=== PATIENT | female | born 1940 | race African-American/Black ===

== ENCOUNTER → 2016-06-27 | Outpatient (CLI) | payer OTHER | LOC: RAD 02:00 | DX: Z12.31 Encounter for screening mammogram for malignant neoplasm of breast (principal) ==

== ENCOUNTER → 2017-07-17 | Outpatient (CLI) | payer OTHER | LOC: RAD 10:09 | DX: Z12.31 Encounter for screening mammogram for malignant neoplasm of breast (principal) ==

== ENCOUNTER → 2017-08-10 | Outpatient (CLI) | payer OTHER ==
[2017-08-10 10:21] LABS: CREATININE 0.8 mg/dL (0.6-1.0)
== END ==
LOC: CAT 06:48
PROVIDERS: Thoracic Surgery (Cardiothoracic Vascular Surgery)
DX: Z01.812 Encounter for preprocedural laboratory examination (principal); I71.2 Thoracic aortic aneurysm, without rupture; N28.1 Cyst of kidney, acquired

== ENCOUNTER → 2018-05-21 | Outpatient (CLI) | payer OTHER | LOC: RAD 10:13 → ULTRA 10:13 | DX: N63.22 Unspecified lump in the left breast, upper inner quadrant (principal); R92.2 Inconclusive mammogram; I10 Essential (primary) hypertension; I48.91 Unspecified atrial fibrillation; M81.0 Age-related osteoporosis without current pathological fracture ==

== ENCOUNTER → 2018-07-20 | Outpatient (CLI) | payer OTHER ==
[2018-07-20 13:23] LABS: CREATININE 0.7 mg/dL (0.6-1.0)
== END ==
LOC: LABMALL 12:50
PROVIDERS: Internal Medicine Cardiovascular Disease
DX: I71.2 Thoracic aortic aneurysm, without rupture (principal); N28.1 Cyst of kidney, acquired; Z88.8 Allergy status to other drugs, medicaments and biological substances

== ENCOUNTER → 2018-12-17 | Outpatient (CLI) | payer OTHER ==
[2018-12-17 10:16] LABS: CALCIUM 9.4 mg/dL (8.5-10.1); CREATININE 0.7 mg/dL (0.6-1.0); POTASSIUM 4.2 mmol/L (3.5-5.1)
--- NOTE | 2018-12-17 12:34 | 2DMMODE ---
[facility] [place] [address] 2 D/M-MODE ECHOCARDIOGRAM Name: ZEE ORTIZ Room #: REG [facility]#: [id number] Admission: 12/17/18 Attend Phys: Isidro Billings MD Discharge: Date of : 44 Report #: [id number] THIS REPORT FOR: //name// APPROVED REPORT Study performed: 12/17/2018 11:15:10 EXAM: Comprehensive 2D, Doppler, and color-flow Echocardiogram Patient Location: Out-Patient Room #: Echo lab 2 Status: routine BSA: 1.61 HR: 61 bpm BP: 144/82 mmHg Rhythm: NSR Other Information Study Quality: Good Indications Atrial Fibrillation Hypertension/HDD Dilated Aorta 2D Dimensions RVDd: 27.34 mm IVSd: 9.41 (7-11mm) LVOT Diam: 18.49 (18-24mm) LVDd: 42.55 mm PWd: 8.94 (7-11mm) Ascending Ao: 45.61 (22-36mm) LVDs: 28.42 (25-40mm) Aortic Root: 32.57 mm IVC: 11.00 mm Volumes Left Atrial Volume (Systole) Single Plane 4CH: 30.50 mL Single Plane 2CH: 29.39 mL LA ESV Index: 22.00 mL/m2 Aortic Valve AoV Peak Cristian.: 1.55 m/s AO Peak Gr.: 9.60 mmHg LVOT Max P.72 mmHg LVOT Max V: 1.20 m/s ERIC Vmax: 2.07 cm2 AI Vmax: 5.07 m/s AI [place]: 2.72 m/s2 AI PHT: 540.84 ms [facility] [place] [address] 2 D/M-MODE ECHOCARDIOGRAM Name: ZEE ORTIZ Room #: [facility]#: [id number] Admission: 12/17/18 Attend Phys: Isidro Billings MD Discharge: Date of : 44 Report #: [id number] Mitral Valve E/A Ratio: 0.6 MV Decel. Time: 278.65 ms MV E Max Cristian.: 0.44 m/s MV A Cristian.: 0.71 m/s MV PHT: 80.81 ms IVRT: 152.25 ms Pulmonary Valve PV Peak Cristian.: 0.86 m/s PV Peak Gr.: 2.94 mmHg Pulmonary Vein P Vein S: 0.57 m/s P Vein A: 0.36 m/s P Vein D: 0.36 m/s P Vein A Dur.: 115.3 msec P Vein S/D Ratio: 1.58 Tricuspid Valve TR Peak Cristian.: 2.52 m/s TR Peak Gr.: 25.43 mmHg PA Pressure: 30.00 mmHg Left Ventricle The left ventricle is normal size. There is normal LV segmental wall motion. There is normal left ventricular wall thickness. The left ventricular systolic function is normal. The left ventricular ejection fraction is within the normal range. LVEF is 55-60%. Grade I - abnormal relaxation pattern. Right Ventricle The right ventricle is normal size. The right ventricular systolic function is normal. Atria The left atrium size is normal. Right atrium is dilated. Aortic Valve The aortic valve is normal in structure. Mild aortic regurgitation. There is no aortic valvular stenosis. Mitral Valve The mitral valve is normal in structure. Mild mitral regurgitation. No evidence of mitral valve stenosis. Tricuspid Valve The tricuspid valve is normal in structure. There is mild tricuspid [facility] [address] [place] [address] 2 D/M-MODE ECHOCARDIOGRAM Name: EZE ORTIZ Room #: REG [facility]#: [id number] Admission: 12/17/18 Attend Phys: Isidro Billings MD Discharge: Date of : 44 Report #: [id number] regurgitation. Estimated PAP 30 mmHg. There is no pulmonary hypertension. Pulmonic Valve The pulmonary valve is normal in structure. Trace pulmonic regurgitation. Great Vessels The aortic root is normal in size. Ascending aorta is dilated. Measuring 4.6 cm IVC is normal in size and collapses >50% with inspiration. Pericardium There is no pericardial effusion. <Conclusion> The left ventricle is normal size. There is normal left ventricular wall thickness. The left ventricular systolic function is normal. Grade I - abnormal relaxation pattern. The right ventricle is normal size. The left atrium size is normal. Right atrium is dilated. Mild aortic regurgitation. Mild mitral regurgitation. There is mild tricuspid regurgitation. Estimated PAP 30 mmHg. Ascending aorta is dilated. Measuring 4.6 cm <ELECTRONICALLY SIGNED> By: Isidro Billings MD 12/17/18 1234 1234 1234 Isidro Billings MD /INF
== END ==
LOC: CV 09:24
PROVIDERS: Internal Medicine Cardiovascular Disease
DX: I08.3 Combined rheumatic disorders of mitral, aortic and tricuspid valves (principal); I71.2 Thoracic aortic aneurysm, without rupture; J98.4 Other disorders of lung

== ENCOUNTER → 2018-12-21 | Outpatient (CLI) | payer OTHER | LOC: BC 10:02 → ULTRA 10:02 | DX: Z12.31 Encounter for screening mammogram for malignant neoplasm of breast (principal); N63.22 Unspecified lump in the left breast, upper inner quadrant ==

== ENCOUNTER → 2019-12-21 | Outpatient (CLI) | payer OTHER | LOC: SJCVCIMAG 08:53 | PROVIDERS: ATTEND Internal Medicine Cardiovascular Disease | DX: I08.8 Other rheumatic multiple valve diseases (principal); I48.0 Paroxysmal atrial fibrillation; R94.31 Abnormal electrocardiogram [ECG] [EKG]; I11.9 Hypertensive heart disease without heart failure; I71.2 Thoracic aortic aneurysm, without rupture; Z79.899 Other long term (current) drug therapy ==

== ENCOUNTER → 2020-03-20 | Outpatient (CLI) | payer OTHER | LOC: BC 08:04 | PROVIDERS: ATTEND Internal Medicine | DX: Z12.31 Encounter for screening mammogram for malignant neoplasm of breast (principal) ==

== ENCOUNTER → 2020-06-20 | Outpatient (CLI) | payer OTHER | LOC: SJCVCIMAG 09:40 | PROVIDERS: ATTEND Internal Medicine Cardiovascular Disease | DX: I49.3 Ventricular premature depolarization (principal); I48.0 Paroxysmal atrial fibrillation; I71.2 Thoracic aortic aneurysm, without rupture; I10 Essential (primary) hypertension; R60.0 Localized edema; E78.5 Hyperlipidemia, unspecified; I47.1 Supraventricular tachycardia; Z79.899 Other long term (current) drug therapy; Z79.01 Long term (current) use of anticoagulants; Z88.8 Allergy status to other drugs, medicaments and biological substances ==

== ENCOUNTER → 2020-12-17 | Outpatient (CLI) | payer OTHER | LOC: SJCVC 10:48 | PROVIDERS: ATTEND Internal Medicine Cardiovascular Disease | DX: I48.0 Paroxysmal atrial fibrillation (principal); I10 Essential (primary) hypertension; I35.9 Nonrheumatic aortic valve disorder, unspecified; I71.2 Thoracic aortic aneurysm, without rupture; Z79.899 Other long term (current) drug therapy; E78.5 Hyperlipidemia, unspecified ==